=== PATIENT | female | born 1965 | race Caucasian/White ===

== ENCOUNTER 2019-11-14 13:04 | Observation (INO) ==
[2019-11-14] MEDS ORDERED: Aspirin 81 MG TAB.CHEW ONE (13:35)
[2019-11-14] MEDS ORDERED: Aspirin 81 MG TAB.CHEW PO SCH (13:45)
[2019-11-14 14:02] LABS: Basophils % 0.3 %; Eosinophils # 0.2 K/mcL (0.0-0.6); Eosinophils % 2.5 %; Hematocrit 39.9 % (35.3-44.9); Hemoglobin 13.3 g/dL (11.5-15.4); Immature Granulocytes % 0.3 % (0-4); Lymphocytes # 1.5 K/mcL (0.6-4.6); Lymphocytes % 21.2 %; Mean Corpuscular HGB Conc 33.3 g/dL (31.6-35.5); Mean Corpuscular Hemoglobin 28.2 pg (28.0-33.3); Mean Corpuscular Volume 84.5 fL (83.0-100.0); Monocytes # 0.5 K/mcL (0.0-1.3); Monocytes % 6.7 %; Platelet Count 272 K/mcL (140-400); Red Blood Count 4.72 M/mcL (3.82-4.97); Red Cell Distribution Width 13.8 % (11.5-14.5); White Blood Count 7.2 K/mcL (4.3-11.1)
[2019-11-14 14:25] LABS: BUN/Creatinine Ratio 22 (6-26); Blood Urea Nitrogen 16 mg/dL (6-20); Calcium 8.9 mg/dL (8.6-10.3); Carbon Dioxide 26 mEq/L (23-29); Chloride 103 mEq/L (98-107); Glucose 385 mg/dL (70-105); Osmolality,Calculated 303 (280-300); Potassium 4.1 mEq/L (3.5-5.1); Sodium 138 mEq/L (136-145); eGFR For African Americans > 60 (> 60); eGFR For Non-African Americans > 60 (> 60)
[2019-11-14] MEDS ORDERED: Ondansetron 4 MG/2 ML VIAL IVP ONE (15:02)
[2019-11-14] MEDS ORDERED: Naloxone 0.4 MG/ML INJ IVP PRN (16:38)
[2019-11-14] MEDS ORDERED: Ondansetron 4 MG/2 ML VIAL IVP PRN (16:38)
[2019-11-14] MEDS ORDERED: Acetaminophen 325 MG TABLET PO PRN (16:38)
[2019-11-14] MEDS ORDERED: *HR* Dextrose 50 % in Water (Syg) 50 ML SYRINGE IVP PRN (18:55)
[2019-11-14] MEDS ORDERED: D5% in Water 1,000 ML IVC PRN (18:55)
[2019-11-14] MEDS ORDERED: Dextrose Gel 15 GM/37.5 ML TUBE PO PRN ×2 (18:55)
[2019-11-14] MEDS ORDERED: cloNIDine HCl 0.1 MG TABLET PO PRN (18:56)
[2019-11-14] MEDS: Fluticasone Propionate Nasal 50 MCG/SPRAY BOTTLE NS SCH (20:56)
[2019-11-14] MEDS: *HR* Heparin 5,000 UNIT/ML VIAL SQ SCH (20:58)
[2019-11-14] MEDS ORDERED: Lisinopril 20 MG TABLET PO SCH (21:00)
[2019-11-14] MEDS ORDERED: Fenofibrate 54 MG TABLET PO SCH (21:00)
[2019-11-14] MEDS ORDERED: Insulin DETEMIR 100 UNIT/ML X5UNITS SQ SCH (21:00)
[2019-11-14] MEDS ORDERED: Melatonin 3 MG TABLET PO SCH (21:00)
[2019-11-14] MEDS ORDERED: *HR* HYDROcodone/Acet 5/325 mg TABLET PO ONE (23:54)
[2019-11-15 02:11] LABS: Basophils % 0.4 %; Eosinophils # 0.2 K/mcL (0.0-0.6); Eosinophils % 2.4 %; Hematocrit 37.9 % (35.3-44.9); Hemoglobin 12.5 g/dL (11.5-15.4); Immature Granulocytes % 0.5 % (0-4); Lymphocytes # 2.7 K/mcL (0.6-4.6); Lymphocytes % 32.7 %; Mean Platelet Volume 11.2 fL (9.4-12.4); Monocytes # 0.7 K/mcL (0.0-1.3); Monocytes % 8.2 %; Neutrophils # 4.6 K/mcL (1.6-8.9); Platelet Count 274 K/mcL (140-400); Red Blood Count 4.46 M/mcL (3.82-4.97); Red Cell Distribution Width 13.7 % (11.5-14.5); Segmented Neutrophils % 55.8 %; White Blood Count 8.2 K/mcL (4.3-11.1)
[2019-11-15 02:31] LABS: BUN/Creatinine Ratio 28 (6-26); Blood Urea Nitrogen 18 mg/dL (6-20); Calcium 9.1 mg/dL (8.6-10.3); Carbon Dioxide 26 mEq/L (23-29); Chloride 102 mEq/L (98-107); Glucose 163 mg/dL (70-105); Magnesium 1.8 mg/dL (1.6-2.6); Osmolality,Calculated 285 (280-300); Potassium 3.8 mEq/L (3.5-5.1); Sodium 135 mEq/L (136-145); eGFR For African Americans > 60 (> 60); eGFR For Non-African Americans > 60 (> 60)
[2019-11-15] MEDS: *HR* Heparin 5,000 UNIT/ML VIAL SQ SCH (05:02)
[2019-11-15] MEDS: Fluticasone Propionate Nasal 50 MCG/SPRAY BOTTLE NS SCH (08:00)
[2019-11-15] MEDS ORDERED: Insulin LISPRO 300 UNITS/3 ML VIAL SQ SCH (08:00)
[2019-11-15] MEDS ORDERED: Ergocalciferol (VIT D2) 50,000 UNIT (1.25MG) CAP PO SCH (09:00)
[2019-11-15] MEDS ORDERED: Aspirin Enteric Coated 81 MG Tablet PO SCH (09:00)
[2019-11-15 11:15] VITALS: BP 116/75
== END 2019-11-15 12:11 | disposition home or self-care (01) ==
LOC: EMEROOARM 13:04 → 3BNU 13:04 → SUATTDRO 16:36 → 3BNU 17:29
PROVIDERS: ADMIT Pharmacist; ATTEND Internal Medicine

== ENCOUNTER 2020-04-08 02:50 | Observation (INO) ==
[2020-04-08] MEDS ORDERED: Naloxone 0.4 MG/ML INJ IVP PRN (03:15)
[2020-04-08] MEDS ORDERED: *HR* HYDROcodone/Acet 5/325 mg TABLET PO PRN (03:27)
[2020-04-08] MEDS ORDERED: cloNIDine HCL 0.1 MG TABLET PO PRN (03:27)
[2020-04-08] MEDS ORDERED: D5% in Water 1,000 ML IVC PRN (03:31)
[2020-04-08] MEDS ORDERED: *HR* Dextrose 50 % in Water (Vial) 50 ML VIAL IVP PRN (03:31)
[2020-04-08] MEDS ORDERED: Dextrose Gel 15 GM/37.5 ML TUBE PO PRN ×2 (03:31)
[2020-04-08] MEDS: *HR* Heparin 5,000 UNIT/ML VIAL SQ SCH ×2 (06:20→11:38)
[2020-04-08] MEDS: Gabapentin 300 MG CAPSULE PO SCH ×2 (07:53→16:24)
[2020-04-08] MEDS: Insulin LISPRO 300 UNITS/3 ML VIAL SQ SCH ×3 (07:54→16:24)
[2020-04-08] MEDS ORDERED: Fluticasone Propionate Nasal 50 MCG/SPRAY BOTTLE NS SCH (09:00)
[2020-04-08] MEDS ORDERED: Aspirin Enteric Coated 81 MG Tablet PO SCH (09:00)
[2020-04-08] MEDS ORDERED: atenoloL 25 MG TABLET PO SCH (09:00)
[2020-04-08] MEDS ORDERED: Metoprolol XL (24 HR) Succ 25 MG TAB.ER.24H PO SCH (10:15)
[2020-04-08 10:29] LABS: Basophils % 0.4 %; Eosinophils # 0.2 K/mcL (0.0-0.6); Eosinophils % 2.9 %; Hematocrit 38.8 % (35.3-44.9); Hemoglobin 12.7 g/dL (11.5-15.4); Immature Granulocytes % 0.7 % (0-4); Lymphocytes # 2.5 K/mcL (0.6-4.6); Lymphocytes % 34.6 %; Mean Corpuscular HGB Conc 32.7 g/dL (31.6-35.5); Mean Corpuscular Hemoglobin 28.2 pg (28.0-33.3); Mean Platelet Volume 10.7 fL (9.4-12.4); Monocytes # 0.7 K/mcL (0.0-1.3); Monocytes % 9.8 %; Neutrophils # 3.7 K/mcL (1.6-8.9); Platelet Count 262 K/mcL (140-400); Red Blood Count 4.51 M/mcL (3.82-4.97); Red Cell Distribution Width 14.6 % (11.5-14.5); Segmented Neutrophils % 51.6 %; White Blood Count 7.2 K/mcL (4.3-11.1)
[2020-04-08 10:39] LABS: BUN/Creatinine Ratio 25 (6-26); Blood Urea Nitrogen 20 mg/dL (6-20); Calcium 9.4 mg/dL (8.6-10.3); Carbon Dioxide 26 mEq/L (23-29); Chloride 98 mEq/L (98-107); Glucose 275 mg/dL (70-105); Osmolality,Calculated 288 (280-300); Potassium 3.6 mEq/L (3.5-5.1); Sodium 133 mEq/L (136-145); eGFR For African Americans > 60 (> 60); eGFR For Non-African Americans > 60 (> 60)
[2020-04-08 15:36] VITALS: BP 93/60
[2020-04-08] MEDS ORDERED: Warfarin perPT PO PRN (18:00)
[2020-04-08] MEDS ORDERED: *HR* Warfarin 5 MG TABLET PO ONE (18:00)
[2020-04-08] MEDS ORDERED: Fenofibrate 54 MG TABLET PO SCH (21:00)
[2020-04-08] MEDS ORDERED: lisinopriL 20 MG TABLET PO SCH ×2 (21:00)
[2020-04-10] MEDS ORDERED: Ergocalciferol (VIT D2) 50,000 UNIT (1.25MG) CAP PO SCH (09:00)
== END 2020-04-08 18:39 | disposition home or self-care (01) ==
LOC: 3BNU
PROVIDERS: ADMIT Internal Medicine; ATTEND Internal Medicine

== ENCOUNTER 2020-06-13 06:40 | Inpatient (IN) ==
[2020-06-13] MEDS ORDERED: *HR* Midazolam HCl 2 MG/2 ML VIAL ONE (07:10)
[2020-06-13] MEDS ORDERED: *HR* FentaNYL (PF) 100 MCG/2 ML VIAL ONE (07:10)
[2020-06-13] MEDS ORDERED: Lidocaine -MPF 2% 2 ML VIAL ONE (07:10)
[2020-06-13] MEDS ORDERED: *HR* Remifentanil 1 MG VIAL IVP ONE (07:10)
[2020-06-13] MEDS ORDERED: *HR* Succinylcholine 200 MG/10 ML VIAL IVP ONE (07:10)
[2020-06-13] MEDS ORDERED: *HR* Phenylephrine 10 MG/ML VIAL ONE (07:10)
[2020-06-13] MEDS ORDERED: *HR* Propofol 200 MG/20 ML VIAL IVP ONE (07:10)
[2020-06-13] MEDS ORDERED: CeFAZolin Syr 2,000MG/20 ML 2,000 MG/20 ML SYRINGE IVPB ONE (07:18)
[2020-06-13] MEDS ORDERED: Ringers Solution, Lactated 1,000 ML IVC SCH (07:30)
[2020-06-13] MEDS ORDERED: Bacitracin 50,000 UNIT, Polymyxin B Sulfate 500,000 UNIT, Sodium Chloride IRRigation 1,... IR ONE (07:45)
[2020-06-13] MEDS ORDERED: Lidocaine HCL 4 ML Topical Solution (Laryng-O-Jet Kit Sterile Pak) TP ONE (08:04)
[2020-06-13] MEDS ORDERED: *HR* OxyCODONE Immed Rel 5 MG TABLET PO PRN (08:09)
[2020-06-13] MEDS ORDERED: *HR* HYDROmorphone PF 0.5 MG/0.5 ML SYRINGE IVP PRN (08:09)
[2020-06-13] MEDS ORDERED: *HR* FentaNYL (PF) 100 MCG/2 ML VIAL IVP PRN (08:09)
[2020-06-13] MEDS ORDERED: Lacri-Lube 3.5 GM TUBE ONE (08:12)
[2020-06-13] MEDS ORDERED: *HR* Metoprolol 5 MG/5 ML VIAL IVP ONE (08:55)
[2020-06-13] MEDS ORDERED: EPHEDrine 50 MG/ML VIAL ONE (09:58)
[2020-06-13] MEDS ORDERED: *HR* Vasopressin 20 UNIT/ML VIAL ONE (10:02)
[2020-06-13] MEDS ORDERED: *HR* HYDROMORPHONE 2 MG/ML VIAL ONE (12:48)
[2020-06-13] MEDS ORDERED: Ondansetron 4 MG/2 ML VIAL IVP PRN (15:49)
[2020-06-13] MEDS ORDERED: Acetaminophen 325 MG TABLET PO PRN (15:49)
[2020-06-13] MEDS ORDERED: *HR* GlyBURIDE 2.5 MG TABLET PO PRN (15:49)
[2020-06-13] MEDS ORDERED: cloNIDine HCL 0.1 MG TABLET PO PRN (15:49)
[2020-06-13] MEDS ORDERED: Naloxone 0.4 MG/ML INJ IVP PRN (15:49)
[2020-06-13] MEDS ORDERED: *HR* Glimepiride 2 MG TABLET PO PRN (15:49)
[2020-06-13] MEDS: *HR* HYDROcodone/Acet 5/325 mg TABLET PO PRN (16:28)
[2020-06-13] MEDS: Ringers Solution, Lactated 1,000 ML IVC SCH (18:09)
[2020-06-13] MEDS: CeFAZolin 2 GM/120 ML BAG IVPB SCH (18:10)
[2020-06-13] MEDS: *HR* Metformin 500 MG TABLET PO SCH (18:11)
[2020-06-13] MEDS: *HR* OxyCODONE Immed Rel 5 MG TABLET PO PRN (21:15)
[2020-06-13] MEDS: lisinopriL 20 MG TABLET PO SCH (21:15)
[2020-06-14] MEDS: CeFAZolin 2 GM/120 ML BAG IVPB SCH (00:04)
[2020-06-14] MEDS: *HR* OxyCODONE Immed Rel 5 MG TABLET PO PRN ×2 (03:04→11:01)
[2020-06-14] MEDS: Ringers Solution, Lactated 1,000 ML IVC SCH (05:48)
[2020-06-14] MEDS: *HR* HYDROcodone/Acet 5/325 mg TABLET PO PRN (05:49)
[2020-06-14] MEDS: *HR* Metformin 500 MG TABLET PO SCH ×2 (07:51→16:14)
[2020-06-14] MEDS: Fenofibrate 54 MG TABLET PO SCH (07:51)
[2020-06-14] MEDS: Aspirin Enteric Coated 81 MG Tablet PO SCH (07:52)
[2020-06-14] MEDS: Furosemide 40 MG TABLET PO SCH (07:53)
[2020-06-14] MEDS: Metoprolol XL (24 HR) Succ 50 MG TAB.ER.24H PO SCH (07:53)
[2020-06-14] MEDS ORDERED: 0.9 % Sodium Chloride 500 ML IVC ONE ×2 (08:12→16:01)
[2020-06-14] MEDS ORDERED: 0.9 % Sodium Chloride 500 ML ONE ×2 (08:22→16:08)
[2020-06-14 10:48] LABS: BUN/Creatinine Ratio 18 (6-26); Blood Urea Nitrogen 12 mg/dL (6-20); Calcium 8.1 mg/dL (8.6-10.3); Carbon Dioxide 24 mEq/L (23-29); Chloride 101 mEq/L (98-107); Glucose 261 mg/dL (70-105); Osmolality,Calculated 287 (280-300); Potassium 4.4 mEq/L (3.5-5.1); Sodium 134 mEq/L (136-145); eGFR For African Americans > 60 (> 60); eGFR For Non-African Americans > 60 (> 60)
[2020-06-14] MEDS: Gabapentin 300 MG CAPSULE PO SCH ×3 (11:22→21:34)
[2020-06-14] MEDS ORDERED: *HR* Dextrose 50 % in Water (Vial) 50 ML VIAL IVP PRN (13:38)
[2020-06-14] MEDS ORDERED: D5% in Water 1,000 ML IVC PRN (13:38)
[2020-06-14] MEDS ORDERED: Dextrose Gel 15 GM/37.5 ML TUBE PO PRN ×2 (13:38)
[2020-06-14] MEDS: diazePAM 10 MG TABLET PO PRN (16:29)
[2020-06-14] MEDS ORDERED: Perflutren Lipid Microsphere 1.3 ML in 0.9 % Sodium Chloride 8.7 ML IVP PRN (18:09)
[2020-06-14] MEDS: Acetaminophen IV 1,000 MG/100 ML INFUS..BTL IVPB SCH (23:56)
[2020-06-15 03:38] LABS: Hematocrit 31.8 % (35.3-44.9); Mean Corpuscular HGB Conc 31.4 g/dL (31.6-35.5); Mean Corpuscular Hemoglobin 28.9 pg (28.0-33.3); Mean Corpuscular Volume 91.9 fL (83.0-100.0); Mean Platelet Volume 11.3 fL (9.4-12.4); Platelet Count 143 K/mcL (140-400); Red Blood Count 3.46 M/mcL (3.82-4.97); Red Cell Distribution Width 14.6 % (11.5-14.5)
[2020-06-15 04:02] LABS: BUN/Creatinine Ratio 21 (6-26); Blood Urea Nitrogen 14 mg/dL (6-20); Calcium 8.2 mg/dL (8.6-10.3); Carbon Dioxide 26 mEq/L (23-29); Chloride 102 mEq/L (98-107); Glucose 241 mg/dL (70-105); Osmolality,Calculated 288 (280-300); Potassium 4.4 mEq/L (3.5-5.1); Sodium 135 mEq/L (136-145); eGFR For African Americans > 60 (> 60); eGFR For Non-African Americans > 60 (> 60)
[2020-06-15] MEDS: Acetaminophen IV 1,000 MG/100 ML INFUS..BTL IVPB SCH (06:16)
[2020-06-15] MEDS ORDERED: Insulin LISPRO 300 UNITS/3 ML VIAL SQ SCH ×2 (08:15→21:00)
[2020-06-15] MEDS: *HR* Metformin 500 MG TABLET PO SCH (09:44)
[2020-06-15] MEDS: Furosemide 40 MG TABLET PO SCH (09:44)
[2020-06-15] MEDS: Aspirin Enteric Coated 81 MG Tablet PO SCH (09:45)
[2020-06-15] MEDS: Fenofibrate 54 MG TABLET PO SCH (09:45)
[2020-06-15] MEDS: *HR* HYDROcodone/Acet 5/325 mg TABLET PO PRN ×2 (09:45→16:09)
[2020-06-15] MEDS: Gabapentin 300 MG CAPSULE PO SCH ×3 (09:45→20:49)
[2020-06-15] MEDS: Metoprolol XL (24 HR) Succ 50 MG TAB.ER.24H PO SCH (09:46)
[2020-06-15] MEDS: Insulin LISPRO 300 UNITS/3 ML VIAL SQ SCH ×2 (11:56→16:11)
[2020-06-15] MEDS: Acetaminophen 325 MG TABLET PO PRN (11:56)
[2020-06-15] MEDS: carvediloL 6.25 MG TABLET PO SCH (17:37)
[2020-06-15] MEDS: Ringers Solution, Lactated 1,000 ML IVC SCH ×3 (19:11→20:50)
[2020-06-15] MEDS: lisinopriL 20 MG TABLET PO SCH (20:46)
[2020-06-16 02:18] LABS: Hematocrit 30.3 % (35.3-44.9); Hemoglobin 9.6 g/dL (11.5-15.4); Mean Corpuscular HGB Conc 31.7 g/dL (31.6-35.5); Mean Corpuscular Hemoglobin 29.1 pg (28.0-33.3); Mean Corpuscular Volume 91.8 fL (83.0-100.0); Mean Platelet Volume 11.3 fL (9.4-12.4); Platelet Count 175 K/mcL (140-400); Red Cell Distribution Width 14.7 % (11.5-14.5); White Blood Count 9.6 K/mcL (4.3-11.1)
[2020-06-16 02:34] LABS: BUN/Creatinine Ratio 25 (6-26); Blood Urea Nitrogen 16 mg/dL (6-20); Calcium 8.6 mg/dL (8.6-10.3); Carbon Dioxide 27 mEq/L (23-29); Chloride 99 mEq/L (98-107); Glucose 207 mg/dL (70-105); Osmolality,Calculated 285 (280-300); Potassium 4.1 mEq/L (3.5-5.1); Sodium 134 mEq/L (136-145); eGFR For African Americans > 60 (> 60); eGFR For Non-African Americans > 60 (> 60)
[2020-06-16] MEDS: *HR* HYDROcodone/Acet 5/325 mg TABLET PO PRN ×3 (02:36→17:49)
[2020-06-16] MEDS: Ringers Solution, Lactated 1,000 ML IVC SCH ×2 (06:51→21:09)
[2020-06-16] MEDS: Fenofibrate 54 MG TABLET PO SCH (08:57)
[2020-06-16] MEDS: Acetaminophen 325 MG TABLET PO PRN ×2 (08:57→15:10)
[2020-06-16] MEDS: Gabapentin 300 MG CAPSULE PO SCH ×3 (08:57→21:09)
[2020-06-16] MEDS: Aspirin Enteric Coated 81 MG Tablet PO SCH (08:58)
[2020-06-16] MEDS: carvediloL 6.25 MG TABLET PO SCH ×2 (08:59→16:58)
[2020-06-16] MEDS: Insulin LISPRO 300 UNITS/3 ML VIAL SQ SCH ×4 (09:00→21:10)
[2020-06-16] MEDS ORDERED: Warfarin perPT PO PRN (18:00)
[2020-06-16] MEDS ORDERED: *HR* Warfarin 2 MG TABLET PO ONE (18:00)
[2020-06-16] MEDS: lisinopriL 20 MG TABLET PO SCH (21:03)
[2020-06-17] MEDS: *HR* HYDROcodone/Acet 5/325 mg TABLET PO PRN (00:23)
[2020-06-17] MEDS: *HR* OxyCODONE Immed Rel 5 MG TABLET PO PRN ×4 (04:55→22:50)
[2020-06-17 07:13] LABS: INR 1.2; Prothrombin Time 13.8 Seconds (9.4-12.1)
[2020-06-17] MEDS: Gabapentin 300 MG CAPSULE PO SCH ×3 (08:29→19:59)
[2020-06-17] MEDS: Fenofibrate 54 MG TABLET PO SCH (08:29)
[2020-06-17] MEDS: diazePAM 10 MG TABLET PO PRN (08:30)
[2020-06-17] MEDS: Acetaminophen 325 MG TABLET PO PRN ×2 (08:30→17:37)
[2020-06-17] MEDS: Aspirin Enteric Coated 81 MG Tablet PO SCH (08:30)
[2020-06-17] MEDS: carvediloL 6.25 MG TABLET PO SCH ×2 (08:31→16:15)
[2020-06-17] MEDS: Insulin LISPRO 300 UNITS/3 ML VIAL SQ SCH ×4 (08:32→20:08)
[2020-06-17] MEDS ORDERED: *HR* Warfarin 2 MG TABLET PO ONE (18:00)
[2020-06-17] MEDS: lisinopriL 20 MG TABLET PO SCH (20:00)
[2020-06-18 03:44] LABS: INR 1.2; Prothrombin Time 13.6 Seconds (9.4-12.1)
[2020-06-18] MEDS: *HR* OxyCODONE Immed Rel 5 MG TABLET PO PRN ×4 (04:17→22:47)
[2020-06-18] MEDS: Gabapentin 300 MG CAPSULE PO SCH ×3 (08:07→20:29)
[2020-06-18] MEDS: Aspirin Enteric Coated 81 MG Tablet PO SCH (08:08)
[2020-06-18] MEDS: carvediloL 6.25 MG TABLET PO SCH ×2 (08:08→16:02)
[2020-06-18] MEDS: Fenofibrate 54 MG TABLET PO SCH (08:09)
[2020-06-18] MEDS: Insulin LISPRO 300 UNITS/3 ML VIAL SQ SCH ×4 (08:13→22:32)
[2020-06-18] MEDS: diazePAM 10 MG TABLET PO PRN (13:14)
[2020-06-18] MEDS ORDERED: *HR* Warfarin 2 MG TABLET PO ONE (18:00)
[2020-06-18] MEDS ORDERED: diazePAM 10 MG TABLET PO PRN (19:19)
[2020-06-18] MEDS: Acetaminophen 325 MG TABLET PO PRN (20:39)
[2020-06-18] MEDS: Ringers Solution, Lactated 1,000 ML IVC SCH ×2 (21:00→21:01)
[2020-06-18] MEDS: lisinopriL 20 MG TABLET PO SCH (21:02)
[2020-06-19] MEDS: *HR* HYDROcodone/Acet 5/325 mg TABLET PO PRN (01:11)
[2020-06-19] MEDS: Ringers Solution, Lactated 1,000 ML IVC SCH (02:39)
[2020-06-19 03:14] LABS: INR 1.2; Prothrombin Time 13.4 Seconds (9.4-12.1)
[2020-06-19] MEDS: *HR* OxyCODONE Immed Rel 5 MG TABLET PO PRN ×4 (06:49→22:29)
[2020-06-19] MEDS: carvediloL 6.25 MG TABLET PO SCH ×2 (07:45→16:10)
[2020-06-19] MEDS: Aspirin Enteric Coated 81 MG Tablet PO SCH (07:46)
[2020-06-19] MEDS: Gabapentin 300 MG CAPSULE PO SCH ×3 (07:46→20:32)
[2020-06-19] MEDS: Fenofibrate 54 MG TABLET PO SCH (07:46)
[2020-06-19] MEDS: Insulin LISPRO 300 UNITS/3 ML VIAL SQ SCH ×4 (07:47→20:30)
[2020-06-19] MEDS: Ergocalciferol (VIT D2) 50,000 UNIT (1.25MG) CAP PO SCH (10:09)
[2020-06-19] MEDS ORDERED: *HR* Warfarin 2.5 MG TABLET PO ONE (18:00)
[2020-06-19] MEDS: lisinopriL 20 MG TABLET PO SCH (20:29)
[2020-06-20] MEDS: *HR* HYDROcodone/Acet 5/325 mg TABLET PO PRN (01:43)
[2020-06-20] MEDS: *HR* OxyCODONE Immed Rel 5 MG TABLET PO PRN ×4 (02:50→21:12)
[2020-06-20 05:25] LABS: INR 1.3; Prothrombin Time 14.2 Seconds (9.4-12.1)
[2020-06-20] MEDS: Acetaminophen 325 MG TABLET PO PRN (06:30)
[2020-06-20] MEDS: Fenofibrate 54 MG TABLET PO SCH (08:01)
[2020-06-20] MEDS: Aspirin Enteric Coated 81 MG Tablet PO SCH (08:01)
[2020-06-20] MEDS: Gabapentin 300 MG CAPSULE PO SCH ×3 (08:02→21:12)
[2020-06-20] MEDS: carvediloL 6.25 MG TABLET PO SCH ×2 (08:02→16:26)
[2020-06-20] MEDS: Insulin LISPRO 300 UNITS/3 ML VIAL SQ SCH ×4 (08:06→21:00)
[2020-06-20] MEDS ORDERED: *HR* Warfarin 2 MG TABLET PO ONE (18:00)
[2020-06-20] MEDS: lisinopriL 20 MG TABLET PO SCH (21:12)
[2020-06-21] MEDS: *HR* OxyCODONE Immed Rel 5 MG TABLET PO PRN ×3 (04:58→20:28)
[2020-06-21 05:04] LABS: INR 1.3; Prothrombin Time 14.8 Seconds (9.4-12.1)
[2020-06-21] MEDS: carvediloL 6.25 MG TABLET PO SCH ×2 (08:15→16:43)
[2020-06-21] MEDS: Fenofibrate 54 MG TABLET PO SCH (08:15)
[2020-06-21] MEDS: Aspirin Enteric Coated 81 MG Tablet PO SCH (08:15)
[2020-06-21] MEDS: Gabapentin 300 MG CAPSULE PO SCH ×3 (08:15→20:29)
[2020-06-21] MEDS: Insulin LISPRO 300 UNITS/3 ML VIAL SQ SCH ×4 (08:18→20:37)
[2020-06-21 12:56] LABS: Bacteria,Urine Few per hpf (None-Few); Bilirubin,Urine Negative (Negative); Blood,Urine Small (Negative); Clarity,Urine Turbid (Clear); Color,Urine Yellow (Yellow); Glucose,Urine (UA) 300 mg/dL (Normal); Hyaline Casts,Urine Few per lpf (None Seen); Ketones,Urine Negative (Negative); Leukocyte Esterase,Urine Large (Negative); Mucus,Urine Few per lpf (None-Few); Nitrite,Urine Negative (Negative); PH,Urine 7.5 pH Units (5.0-8.0); Protein,Urine 30 mg/dL (Neg-Trace); RBC,Urine 15-30 per hpf (0-3); Specific Gravity,Urine 1.011 (1.010-1.025); Squamous Epithelial Cell,Urine Few per hpf (None-Few); Urobilinogen,Urine Normal (Normal); WBC,Urine TNTC per hpf (0-3)
[2020-06-21] MEDS: cefTRIAXone 1,000 MG in Water for inj. (sterile) 10 ML IVP SCH (16:38)
[2020-06-21] MEDS ORDERED: *HR* Warfarin 4 MG TABLET PO ONE (18:00)
[2020-06-21] MEDS: lisinopriL 20 MG TABLET PO SCH (20:29)
[2020-06-22] MEDS: *HR* OxyCODONE Immed Rel 5 MG TABLET PO PRN ×4 (00:38→17:44)
[2020-06-22 07:43] LABS: INR 1.5; Prothrombin Time 16.6 Seconds (9.4-12.1)
[2020-06-22] MEDS: Insulin LISPRO 300 UNITS/3 ML VIAL SQ SCH ×4 (08:42→22:00)
[2020-06-22] MEDS: Aspirin Enteric Coated 81 MG Tablet PO SCH (08:43)
[2020-06-22] MEDS: carvediloL 6.25 MG TABLET PO SCH ×2 (08:43→16:28)
[2020-06-22] MEDS: Fenofibrate 54 MG TABLET PO SCH (08:43)
[2020-06-22] MEDS: Gabapentin 300 MG CAPSULE PO SCH ×3 (08:43→21:13)
[2020-06-22] MEDS: cefTRIAXone 1,000 MG in Water for inj. (sterile) 10 ML IVP SCH (08:44)
[2020-06-22] MEDS ORDERED: *HR* Warfarin 4 MG TABLET PO ONE (18:00)
[2020-06-22] MEDS: *HR* HYDROcodone/Acet 5/325 mg TABLET PO PRN (21:12)
[2020-06-22] MEDS: lisinopriL 20 MG TABLET PO SCH (21:13)
[2020-06-23 01:30] LABS: INR 1.5; Prothrombin Time 16.7 Seconds (9.4-12.1)
[2020-06-23] MEDS: *HR* OxyCODONE Immed Rel 5 MG TABLET PO PRN ×4 (01:59→16:55)
[2020-06-23] MEDS: *HR* HYDROcodone/Acet 5/325 mg TABLET PO PRN ×2 (04:32→19:10)
[2020-06-23] MEDS: carvediloL 6.25 MG TABLET PO SCH ×2 (08:20→17:48)
[2020-06-23] MEDS: Aspirin Enteric Coated 81 MG Tablet PO SCH (08:21)
[2020-06-23] MEDS: Fenofibrate 54 MG TABLET PO SCH (08:22)
[2020-06-23] MEDS: Gabapentin 300 MG CAPSULE PO SCH ×3 (08:22→20:27)
[2020-06-23] MEDS: Insulin LISPRO 300 UNITS/3 ML VIAL SQ SCH ×4 (08:23→20:05)
[2020-06-23 09:14] LABS: BUN/Creatinine Ratio 19 (6-26); Blood Urea Nitrogen 10 mg/dL (6-20); Calcium 9.3 mg/dL (8.6-10.3); Carbon Dioxide 31 mEq/L (23-29); Chloride 97 mEq/L (98-107); Glucose 205 mg/dL (70-105); Osmolality,Calculated 283 (280-300); Potassium 4.2 mEq/L (3.5-5.1); Sodium 134 mEq/L (136-145); eGFR For African Americans > 60 (> 60); eGFR For Non-African Americans > 60 (> 60)
[2020-06-23] MEDS: cefTRIAXone 1,000 MG in Water for inj. (sterile) 10 ML IVP SCH (10:29)
[2020-06-23] MEDS ORDERED: *HR* Warfarin 3 MG TABLET PO ONE (18:00)
[2020-06-23] MEDS: lisinopriL 20 MG TABLET PO SCH (20:27)
[2020-06-24] MEDS: *HR* OxyCODONE Immed Rel 5 MG TABLET PO PRN ×4 (03:21→18:05)
[2020-06-24 07:37] LABS: INR 1.7; Prothrombin Time 19.5 Seconds (9.4-12.1)
[2020-06-24] MEDS: Gabapentin 300 MG CAPSULE PO SCH ×3 (08:14→20:16)
[2020-06-24] MEDS: carvediloL 6.25 MG TABLET PO SCH ×2 (08:15→18:04)
[2020-06-24] MEDS: Aspirin Enteric Coated 81 MG Tablet PO SCH (08:15)
[2020-06-24] MEDS: Fenofibrate 54 MG TABLET PO SCH (08:15)
[2020-06-24] MEDS: cefTRIAXone 1,000 MG in Water for inj. (sterile) 10 ML IVP SCH (08:16)
[2020-06-24] MEDS: Insulin LISPRO 300 UNITS/3 ML VIAL SQ SCH ×4 (08:26→21:00)
[2020-06-24] MEDS ORDERED: *HR* Warfarin 2 MG TABLET PO ONE (18:00)
[2020-06-24] MEDS: lisinopriL 20 MG TABLET PO SCH (20:17)
[2020-06-24] MEDS ORDERED: 0.9 % Sodium Chloride 500 ML IVC ONE ×3 (20:29→23:30)
[2020-06-25 05:06] LABS: INR 1.9; Prothrombin Time 22.1 Seconds (9.4-12.1)
[2020-06-25] MEDS: Fenofibrate 54 MG TABLET PO SCH (08:00)
[2020-06-25] MEDS: Gabapentin 300 MG CAPSULE PO SCH ×3 (08:00→20:53)
[2020-06-25] MEDS: carvediloL 6.25 MG TABLET PO SCH ×2 (08:01→16:17)
[2020-06-25] MEDS: Aspirin Enteric Coated 81 MG Tablet PO SCH (08:01)
[2020-06-25] MEDS: *HR* HYDROcodone/Acet 5/325 mg TABLET PO PRN (08:01)
[2020-06-25] MEDS: Insulin LISPRO 300 UNITS/3 ML VIAL SQ SCH ×4 (08:02→20:54)
[2020-06-25] MEDS: cefTRIAXone 1,000 MG in Water for inj. (sterile) 10 ML IVP SCH (08:02)
[2020-06-25] MEDS: *HR* OxyCODONE Immed Rel 5 MG TABLET PO PRN ×2 (13:37→21:00)
[2020-06-25] MEDS: lisinopriL 20 MG TABLET PO SCH (20:53)
[2020-06-26 01:27] LABS: INR 1.8; Prothrombin Time 20.7 Seconds (9.4-12.1)
[2020-06-26] MEDS: *HR* OxyCODONE Immed Rel 5 MG TABLET PO PRN ×2 (02:56→07:58)
[2020-06-26 05:50] VITALS: BP 131/82
[2020-06-26] MEDS: Fenofibrate 54 MG TABLET PO SCH (07:52)
[2020-06-26] MEDS: Aspirin Enteric Coated 81 MG Tablet PO SCH (07:53)
[2020-06-26] MEDS: carvediloL 6.25 MG TABLET PO SCH (07:53)
[2020-06-26] MEDS: Gabapentin 300 MG CAPSULE PO SCH (07:53)
[2020-06-26] MEDS: cefTRIAXone 1,000 MG in Water for inj. (sterile) 10 ML IVP SCH (07:54)
[2020-06-26] MEDS: Ergocalciferol (VIT D2) 50,000 UNIT (1.25MG) CAP PO SCH (07:54)
[2020-06-26] MEDS: Insulin LISPRO 300 UNITS/3 ML VIAL SQ SCH (07:55)
== END 2020-06-26 12:40 | DRG 453 ==
LOC: SAMDAY 06:40 → 3NENU 06:40
PROVIDERS: ADMIT Orthopaedic Surgery Orthopaedic Surgery of the Spine; ATTEND Orthopaedic Surgery Orthopaedic Surgery of the Spine

== ENCOUNTER 2020-09-12 13:04 | Inpatient (IN) ==
[2020-09-12] MEDS ORDERED: 0.9 % Sodium Chloride 1,000 ML ONE (18:44)
[2020-09-12] MEDS ORDERED: Naloxone 0.4 MG/ML INJ IVP PRN (19:14)
[2020-09-12 19:57] LABS: Hematocrit 29.3 % (35.3-44.9); Hemoglobin 8.9 g/dL (11.5-15.4); Mean Corpuscular HGB Conc 30.4 g/dL (31.6-35.5); Mean Corpuscular Hemoglobin 25.1 pg (28.0-33.3); Mean Corpuscular Volume 82.5 fL (83.0-100.0); Mean Platelet Volume 11.5 fL (9.4-12.4); Nucleated Red Blood Cells 0.3 /100 WBC (0); Platelet Count 299 K/mcL (140-400); Red Blood Count 3.55 M/mcL (3.82-4.97); Red Cell Distribution Width 17.2 % (11.5-14.5); White Blood Count 21.1 K/mcL (4.3-11.1)
[2020-09-12 19:59] LABS: Activated Partial Thrombo Time 49.2 Seconds (26.0-36.0)
[2020-09-12] MEDS ORDERED: Vancomycin 1,750 MG in 0.9 % Sodium Chloride 250 ML IVPB SCH (20:00)
[2020-09-12] MEDS ORDERED: Vancomycin 1,750 MG/517.5 ML IV.SOLN IVPB ONE (20:00)
[2020-09-12 20:10] LABS: Prothrombin Time 94.7 Seconds (9.4-12.1)
[2020-09-12 20:11] LABS: INR 8.7
[2020-09-12] MEDS ORDERED: 0.9 % Sodium Chloride 1,000 ML IVC SCH (20:15)
[2020-09-12 20:21] LABS: Albumin 2.7 g/dL (3.5-5.7); Albumin/Globulin Ratio 0.7 (1.1-2.2); Bilirubin,Total 0.8 mg/dL (0.3-1.0); Globulin 3.8 g/dL (2.4-3.5); Magnesium 1.6 mg/dL (1.6-2.6); Potassium 5.9 mEq/L (3.5-5.1); Total Protein 6.5 g/dL (6.4-8.9); Troponin I 0.05 ng/mL (< 0.04)
[2020-09-12 20:27] LABS: Lymphocytes # 1.3 K/mcL (0.6-4.6); Monocytes # 1.3 K/mcL (0.0-1.3); Neutrophils # 18.2 K/mcL (1.6-8.9); Platelet Estimate Normal (Normal); Toxic Granulation Present (Not Present)
[2020-09-12] MEDS ORDERED: *HR* Dextrose 50 % in Water (Vial) 50 ML VIAL IVP PRN (20:31)
[2020-09-12] MEDS ORDERED: Dextrose Gel 15 GM/37.5 ML TUBE PO PRN ×2 (20:31)
[2020-09-12] MEDS ORDERED: D5% in Water 1,000 ML IVC PRN (20:31)
[2020-09-12] MEDS: 0.9 % Sodium Chloride 1,000 ML IVC SCH (21:40)
[2020-09-12 21:50] LABS: ABG Base Excess -6 mEq/L (-2 to 3); ABG HCO3 20 mEq/L (21-27); ABG Oxygen Saturation 92 % (95-98); ABG PCO2 41 mmHg (35-45); ABG PO2 72 mmHg (85-104); ABG TCO2 22 mEq/L (20-26)
[2020-09-12] MEDS: Insulin DETEMIR 100 UNIT/ML X5UNITS SQ SCH (22:23)
[2020-09-13] MEDS ORDERED: 0.9 % Sodium Chloride 1,000 ML IV ONE (00:24)
[2020-09-13] MEDS: Piperacillin/Tazobactam 3.375 GM in 0.9 % Sodium Chloride Mini Bag 100 ML IVPB SCH ×2 (00:43→08:25)
[2020-09-13] MEDS: Insulin LISPRO 300 UNITS/3 ML VIAL SQ SCH ×6 (00:44→21:30)
[2020-09-13 01:51] LABS: Adenovirus Not Detected (Not Detect); Coronavirus 229E Not Detected (Not Detect); Coronavirus HKU1 Not Detected (Not Detect); Coronavirus NL63 Not Detected (Not Detect)
[2020-09-13 01:52] LABS: Bordetella Pertussis Not Detected (Not Detect); Chlamydophila pneumoniae Not Detected (Not Detect); Coronavirus OC43 Not Detected (Not Detect); Human Metapneumovirus Not Detected (Not Detect); Human Rhinovirus/Enterovirus Not Detected (Not Detect); Influenza A Subtype 2009 H1 Not Detected (Not Detect); Influenza B Not Detected (Not Detect); Mycoplasma pneumoniae Not Detected (Not Detect); Parainfluenza Virus 1 Not Detected (Not Detect); Parainfluenza Virus 2 Not Detected (Not Detect); Parainfluenza Virus 3 Not Detected (Not Detect); Parainfluenza Virus 4 Not Detected (Not Detect); Respiratory Syncytial Virus Not Detected (Not Detect); SARS-CoV-2 Not Detected (Not Detect)
[2020-09-13 02:03] LABS: Basophils % 0.2 %; Eosinophils % 0.1 %; Hematocrit 29.4 % (35.3-44.9); Hemoglobin 8.7 g/dL (11.5-15.4); Immature Granulocytes % 1.4 % (0-4); Lymphocytes % 5.7 %; Mean Corpuscular HGB Conc 29.6 g/dL (31.6-35.5); Mean Corpuscular Hemoglobin 24.7 pg (28.0-33.3); Mean Corpuscular Volume 83.5 fL (83.0-100.0); Monocytes # 1.1 K/mcL (0.0-1.3); Neutrophils # 15.5 K/mcL (1.6-8.9); Nucleated Red Blood Cells 0.3 /100 WBC (0); Platelet Count 265 K/mcL (140-400); Red Blood Count 3.52 M/mcL (3.82-4.97); Red Cell Distribution Width 17.5 % (11.5-14.5); Segmented Neutrophils % 86.6 %
[2020-09-13 02:10] LABS: INR 3.2; Prothrombin Time 35.6 Seconds (9.4-12.1)
[2020-09-13 02:25] LABS: Albumin 2.6 g/dL (3.5-5.7); Albumin/Globulin Ratio 0.7 (1.1-2.2); Bilirubin,Total 0.9 mg/dL (0.3-1.0); Calcium 7.9 mg/dL (8.6-10.3); Globulin 3.7 g/dL (2.4-3.5); Potassium 5.1 mEq/L (3.5-5.1); Total Protein 6.3 g/dL (6.4-8.9)
[2020-09-13 04:10] LABS: Estimated Average Glucose 206 mg/dl; Hemoglobin A1C 8.8 %
[2020-09-13] MEDS: 0.9 % Sodium Chloride 1,000 ML IVC SCH ×2 (04:18→11:17)
[2020-09-13 05:35] LABS: Bacteria,Urine Few per hpf (None-Few); Bilirubin,Urine Negative (Negative); Blood,Urine Small (Negative); Calcium Oxalate Crystals,Urine Present; Clarity,Urine Turbid (Clear); Color,Urine Light-Yellow (Yellow); Glucose,Urine (UA) Normal (Normal); Ketones,Urine Negative (Negative); Leukocyte Esterase,Urine Moderate (Negative); Mucus,Urine Few per lpf (None-Few); Nitrite,Urine Negative (Negative); Protein,Urine Trace mg/dL (Neg-Trace); RBC,Urine 0-3 per hpf (0-3); Specific Gravity,Urine 1.016 (1.010-1.025); Squamous Epithelial Cell,Urine Few per hpf (None-Few); Urobilinogen,Urine Normal (Normal); WBC,Urine 30-50 per hpf (0-3)
[2020-09-13] MEDS ORDERED: *HR* OxyCODONE Immed Rel 5 MG TABLET PO PRN (08:43)
[2020-09-13] MEDS: *HR* HYDROmorphone (PF) 1 MG/ML SYRINGE IVP PRN ×2 (08:54→21:15)
[2020-09-13] MEDS ORDERED: Furosemide 40 MG/4 ML VIAL IVP ONE (10:56)
[2020-09-13] MEDS: *HR* OxyCODONE Immed Rel 5 MG TABLET PO PRN (11:17)
[2020-09-13] MEDS ORDERED: Cefepime HCl 2,000 MG in Water for inj. (sterile) 20 ML IVP SCH ×2 (12:00→18:00)
[2020-09-13] MEDS: Vancomycin 1,500 MG/265 ML IV.SOLN IVPB SCH (16:59)
[2020-09-13] MEDS: Azithromycin 500 MG in 0.9 % Sodium Chloride 250 ML IVPB SCH (16:59)
[2020-09-13] MEDS: Cefepime HCl 2,000 MG in Water for inj. (sterile) 20 ML IVP SCH (16:59)
[2020-09-13] MEDS: Insulin DETEMIR 100 UNIT/ML X5UNITS SQ SCH (21:16)
[2020-09-14 01:35] LABS: Basophils # 0.1 K/mcL (0.0-0.2); Basophils % 0.4 %; Eosinophils # 0.3 K/mcL (0.0-0.6); Eosinophils % 1.5 %; Hematocrit 29.6 % (35.3-44.9); Hemoglobin 9.1 g/dL (11.5-15.4); Immature Granulocytes % 3.1 % (0-4); Lymphocytes # 1.5 K/mcL (0.6-4.6); Lymphocytes % 8.2 %; Mean Corpuscular HGB Conc 30.7 g/dL (31.6-35.5); Mean Corpuscular Hemoglobin 25.5 pg (28.0-33.3); Mean Corpuscular Volume 82.9 fL (83.0-100.0); Mean Platelet Volume 11.4 fL (9.4-12.4); Monocytes # 1.5 K/mcL (0.0-1.3); Monocytes % 8.1 %; Neutrophils # 14.3 K/mcL (1.6-8.9); Nucleated Red Blood Cells 0.9 /100 WBC (0); Platelet Count 287 K/mcL (140-400); Red Blood Count 3.57 M/mcL (3.82-4.97); Red Cell Distribution Width 17.2 % (11.5-14.5); Segmented Neutrophils % 78.7 %; White Blood Count 18.2 K/mcL (4.3-11.1)
[2020-09-14 01:56] LABS: BUN/Creatinine Ratio 57 (6-26); Blood Urea Nitrogen 37 mg/dL (6-20); Calcium 8.5 mg/dL (8.6-10.3); Carbon Dioxide 21 mEq/L (23-29); Chloride 106 mEq/L (98-107); Glucose 87 mg/dL (70-105); Osmolality,Calculated 288 (280-300); Potassium 4.5 mEq/L (3.5-5.1); Sodium 135 mEq/L (136-145); eGFR For African Americans > 60 (> 60); eGFR For Non-African Americans > 60 (> 60)
[2020-09-14] MEDS: Cefepime HCl 2,000 MG in Water for inj. (sterile) 20 ML IVP SCH ×2 (02:12→12:34)
[2020-09-14] MEDS: Insulin LISPRO 300 UNITS/3 ML VIAL SQ SCH ×3 (02:13→11:25)
[2020-09-14 02:28] LABS: Hepatitis B Surface Antigen Nonreactive (Nonreactive)
[2020-09-14 02:57] LABS: Hepatitis C Virus Antibody Nonreactive (Nonreactive)
[2020-09-14 04:50] LABS: Hepatitis B Core IgM Nonreactive (Nonreactive)
[2020-09-14 06:49] LABS: Hepatitis A Antibody IgM Equivocal (Nonreactive)
[2020-09-14] MEDS: *HR* OxyCODONE Immed Rel 5 MG TABLET PO PRN (08:29)
[2020-09-14] MEDS ORDERED: Furosemide 40 MG/4 ML VIAL IVP ONE (10:04)
[2020-09-14] MEDS: *HR* HYDROmorphone (PF) 1 MG/ML SYRINGE IVP PRN (12:34)
[2020-09-14 12:57] LABS: Prothrombin Time 17.8 Seconds (9.4-12.1)
[2020-09-14 12:58] LABS: INR 1.6
[2020-09-14] MEDS: Vancomycin 1,500 MG/265 ML IV.SOLN IVPB SCH (16:27)
[2020-09-14] MEDS: Azithromycin 500 MG in 0.9 % Sodium Chloride 250 ML IVPB SCH (16:27)
[2020-09-14] MEDS ORDERED: Ondansetron 4 MG/2 ML VIAL ONE (16:38)
[2020-09-14] MEDS ORDERED: Lidocaine -MPF 2% 2 ML VIAL ONE (16:38)
[2020-09-14] MEDS ORDERED: *HR* Propofol 200 MG/20 ML VIAL IVP ONE (16:38)
[2020-09-14] MEDS ORDERED: *HR* Meperidine 25 MG/ML SYRINGE IVP PRN (16:38)
[2020-09-14] MEDS ORDERED: Dexamethasone 4 MG/ML VIAL ONE (16:38)
[2020-09-14] MEDS ORDERED: *HR* FentaNYL (PF) 100 MCG/2 ML VIAL ONE ×2 (16:38→18:38)
[2020-09-14] MEDS ORDERED: Ondansetron 4 MG/2 ML VIAL IVP PRN ×2 (16:38→20:40)
[2020-09-14] MEDS ORDERED: *HR* Succinylcholine 200 MG/10 ML VIAL IVP ONE (16:39)
[2020-09-14] MEDS ORDERED: Vancomycin 1,000 MG VIAL ONE ×2 (17:10→17:48)
[2020-09-14] MEDS ORDERED: Lidocaine HCL 4 ML Topical Solution (Laryng-O-Jet Kit Sterile Pak) TP ONE (17:15)
[2020-09-14] MEDS ORDERED: *HR* PHENYLEPHRINE 1,000 MCG/10 ML SYRINGE IVP ONE (17:15)
[2020-09-14] MEDS ORDERED: *HR* Rocuronium Bromide 50 MG/5 ML VIAL ONE (17:16)
[2020-09-14] MEDS ORDERED: Sugammadex Sodium 200 MG/2 ML VIAL IV ONE (17:20)
[2020-09-14] MEDS ORDERED: Bacitracin 50,000 UNIT, Polymyxin B Sulfate 500,000 UNIT, Sodium Chloride IRRigation 1,... IR ONE (17:30)
[2020-09-14] MEDS: *HR* HYDROmorphone PF 0.5 MG/0.5 ML SYRINGE IVP PRN ×2 (19:00→19:10)
[2020-09-14] MEDS ORDERED: Vancomycin 1,750 MG/517.5 ML IV.SOLN IVPB ONE (20:40)
[2020-09-14] MEDS ORDERED: Acetaminophen 325 MG TABLET PO PRN (20:40)
[2020-09-14] MEDS ORDERED: *HR* OxyCODONE Immed Rel 5 MG TABLET PO PRN ×2 (20:40)
[2020-09-14] MEDS ORDERED: Ringers Solution, Lactated 1,000 ML IVC SCH (20:40)
[2020-09-14] MEDS ORDERED: methocarbamoL 750 MG TABLET PO PRN (20:40)
[2020-09-14] MEDS ORDERED: NON-FORMULARY MEDICATION 1 EACH EACH (Acetaminophen [Tylenol 8 Hour] 650 MG) PO PRN (20:40)
[2020-09-14] MEDS ORDERED: *HR* HYDROcodone/Acet 5/325 mg TABLET PO PRN (20:40)
[2020-09-14] MEDS ORDERED: Naloxone 0.4 MG/ML INJ IVP PRN (20:40)
[2020-09-14] MEDS ORDERED: *HR* Metformin 500 MG TABLET PO SCH (21:00)
[2020-09-14] MEDS: carvediloL 6.25 MG TABLET PO SCH (22:41)
[2020-09-15] MEDS ORDERED: D5% in Water 1,000 ML IVC PRN (07:37)
[2020-09-15] MEDS ORDERED: Dextrose Gel 15 GM/37.5 ML TUBE PO PRN ×2 (07:37)
[2020-09-15] MEDS ORDERED: *HR* Dextrose 50 % in Water (Vial) 50 ML VIAL IVP PRN (07:37)
[2020-09-15] MEDS ORDERED: *HR* Glimepiride 2 MG TABLET PO SCH (08:00)
[2020-09-15] MEDS ORDERED: Azithromycin 500 MG in 0.9 % Sodium Chloride 250 ML IVPB SCH (08:00)
[2020-09-15] MEDS ORDERED: Vancomycin 1,750 MG in 0.9 % Sodium Chloride 250 ML IVPB SCH (08:00)
[2020-09-15] MEDS: Nafcillin 2,000 MG in 0.9 % Sodium Chloride Mini Bag 100 ML IVPB SCH ×2 (08:48→14:10)
[2020-09-15] MEDS ORDERED: Insulin DETEMIR 100 UNIT/ML X5UNITS SQ SCH (09:00)
[2020-09-15] MEDS ORDERED: lisinopriL 20 MG TABLET PO SCH (09:00)
[2020-09-15] MEDS: carvediloL 6.25 MG TABLET PO SCH (09:17)
[2020-09-15] MEDS: Insulin LISPRO 300 UNITS/3 ML VIAL SQ SCH ×2 (09:18→13:59)
[2020-09-15] MEDS ORDERED: Perflutren Lipid Microsphere 1.3 ML in 0.9 % Sodium Chloride 8.7 ML IVP PRN (11:13)
[2020-09-15 11:49] LABS: Hematocrit 28.6 % (35.3-44.9); Hemoglobin 8.8 g/dL (11.5-15.4); Mean Corpuscular HGB Conc 30.8 g/dL (31.6-35.5); Mean Corpuscular Hemoglobin 25.4 pg (28.0-33.3); Mean Corpuscular Volume 82.4 fL (83.0-100.0); Mean Platelet Volume 10.9 fL (9.4-12.4); Platelet Count 292 K/mcL (140-400); Red Blood Count 3.47 M/mcL (3.82-4.97); Red Cell Distribution Width 17.1 % (11.5-14.5); White Blood Count 15.8 K/mcL (4.3-11.1)
[2020-09-15] MEDS ORDERED: levoFLOXacin 750 MG TABLET PO SCH (12:00)
[2020-09-15 12:03] LABS: INR 1.6; Prothrombin Time 18.2 Seconds (9.4-12.1)
[2020-09-15 12:07] LABS: BUN/Creatinine Ratio 62 (6-26); Blood Urea Nitrogen 29 mg/dL (6-20); Calcium 8.6 mg/dL (8.6-10.3); Carbon Dioxide 25 mEq/L (23-29); Chloride 100 mEq/L (98-107); Glucose 208 mg/dL (70-105); Osmolality,Calculated 286 (280-300); Potassium 4.5 mEq/L (3.5-5.1); Sodium 132 mEq/L (136-145); eGFR For African Americans > 60 (> 60); eGFR For Non-African Americans > 60 (> 60)
[2020-09-15] MEDS ORDERED: Lidocaine -MPF 4% 5 ML AMPUL ONE (14:54)
[2020-09-15] MEDS ORDERED: Ondansetron 4 MG/2 ML VIAL ONE (14:58)
[2020-09-15] MEDS ORDERED: *HR* Propofol 200 MG/20 ML VIAL IVP ONE (14:58)
[2020-09-15] MEDS ORDERED: *HR* FentaNYL (PF) 100 MCG/2 ML VIAL ONE ×2 (14:58→17:28)
[2020-09-15] MEDS ORDERED: Lidocaine -MPF 2% 2 ML VIAL ONE (14:58)
[2020-09-15] MEDS ORDERED: *HR* Succinylcholine 200 MG/10 ML VIAL IVP ONE (14:58)
[2020-09-15] MEDS ORDERED: Dexamethasone 4 MG/ML VIAL ONE (14:58)
[2020-09-15] MEDS ORDERED: *HR* Midazolam HCl 2 MG/2 ML VIAL ONE (14:58)
[2020-09-15] MEDS ORDERED: Vancomycin 1,000 MG VIAL ONE (15:42)
[2020-09-15] MEDS ORDERED: *HR* Warfarin 3 MG TABLET PO ONE (18:00)
[2020-09-15] MEDS ORDERED: Warfarin perPT PO PRN (18:00)
[2020-09-15] MEDS ORDERED: Naloxone 0.4 MG/ML INJ IVP PRN (18:45)
[2020-09-15] MEDS ORDERED: Sennosides 8.6 MG TABLET PO PRN (18:45)
[2020-09-15] MEDS ORDERED: Ondansetron 4 MG/2 ML VIAL IVP PRN (18:45)
[2020-09-15] MEDS ORDERED: Acetaminophen 325 MG TABLET PO PRN (18:45)
[2020-09-15] MEDS: *HR* OxyCODONE Immed Rel 5 MG TABLET PO PRN (20:20)
[2020-09-15] MEDS: Ringers Solution, Lactated 1,000 ML IVC SCH (20:21)
[2020-09-15] MEDS ORDERED: Insulin LISPRO 300 UNITS/3 ML VIAL SQ SCH (21:00)
[2020-09-16] MEDS: *HR* OxyCODONE Immed Rel 5 MG TABLET PO PRN ×4 (00:32→19:57)
[2020-09-16] MEDS ORDERED: Vancomycin 1,750 MG/517.5 ML IV.SOLN IVPB ONE (04:30)
[2020-09-16 05:14] LABS: Hematocrit 28.2 % (35.3-44.9); Hemoglobin 8.5 g/dL (11.5-15.4); Mean Corpuscular HGB Conc 30.1 g/dL (31.6-35.5); Mean Corpuscular Hemoglobin 24.8 pg (28.0-33.3); Mean Corpuscular Volume 82.2 fL (83.0-100.0); Mean Platelet Volume 10.9 fL (9.4-12.4); Platelet Count 292 K/mcL (140-400); Red Blood Count 3.43 M/mcL (3.82-4.97); Red Cell Distribution Width 16.8 % (11.5-14.5); White Blood Count 13.6 K/mcL (4.3-11.1)
[2020-09-16 05:30] LABS: BUN/Creatinine Ratio 50 (6-26); Blood Urea Nitrogen 23 mg/dL (6-20); Calcium 8.5 mg/dL (8.6-10.3); Carbon Dioxide 27 mEq/L (23-29); Chloride 97 mEq/L (98-107); Glucose 230 mg/dL (70-105); Osmolality,Calculated 285 (280-300); Potassium 4.4 mEq/L (3.5-5.1); Sodium 132 mEq/L (136-145); eGFR For African Americans > 60 (> 60); eGFR For Non-African Americans > 60 (> 60)
[2020-09-16 05:42] LABS: Prothrombin Time 22.7 Seconds (9.4-12.1)
[2020-09-16] MEDS ORDERED: D5% in Water 1,000 ML IVC PRN (08:55)
[2020-09-16] MEDS ORDERED: Dextrose Gel 15 GM/37.5 ML TUBE PO PRN ×2 (08:55)
[2020-09-16] MEDS ORDERED: *HR* Dextrose 50 % in Water (Vial) 50 ML VIAL IVP PRN (08:55)
[2020-09-16] MEDS: Ringers Solution, Lactated 1,000 ML IVC SCH (08:59)
[2020-09-16] MEDS: Nafcillin 2,000 MG in 0.9 % Sodium Chloride Mini Bag 100 ML IVPB SCH ×4 (09:01→23:36)
[2020-09-16] MEDS: lisinopriL 20 MG TABLET PO SCH (09:28)
[2020-09-16] MEDS: levoFLOXacin 750 MG TABLET PO SCH (09:28)
[2020-09-16] MEDS: Aspirin 81 MG TAB.CHEW PO SCH (09:29)
[2020-09-16] MEDS: *HR* HYDROcodone/Acet 5/325 mg TABLET PO PRN ×2 (14:12→22:53)
[2020-09-16] MEDS: Insulin LISPRO 300 UNITS/3 ML VIAL SQ SCH ×3 (14:25→19:58)
[2020-09-16] MEDS ORDERED: *HR* Warfarin 3 MG TABLET PO ONE (18:00)
[2020-09-16] MEDS ORDERED: Warfarin perPT PO PRN (18:00)
[2020-09-16] MEDS: Insulin DETEMIR 100 UNIT/ML X5UNITS SQ SCH (19:58)
[2020-09-17] MEDS: *HR* OxyCODONE Immed Rel 5 MG TABLET PO PRN ×3 (02:15→20:51)
[2020-09-17] MEDS: *HR* HYDROcodone/Acet 5/325 mg TABLET PO PRN ×3 (05:11→23:15)
[2020-09-17] MEDS: Nafcillin 2,000 MG in 0.9 % Sodium Chloride Mini Bag 100 ML IVPB SCH ×4 (05:11→23:16)
[2020-09-17 06:15] LABS: Hematocrit 31.4 % (35.3-44.9); Hemoglobin 9.5 g/dL (11.5-15.4); Mean Corpuscular HGB Conc 30.3 g/dL (31.6-35.5); Mean Corpuscular Hemoglobin 24.9 pg (28.0-33.3); Mean Corpuscular Volume 82.2 fL (83.0-100.0); Mean Platelet Volume 10.4 fL (9.4-12.4); Platelet Count 319 K/mcL (140-400); Red Blood Count 3.82 M/mcL (3.82-4.97); Red Cell Distribution Width 16.9 % (11.5-14.5); White Blood Count 13.7 K/mcL (4.3-11.1)
[2020-09-17 06:19] LABS: Prothrombin Time 22.5 Seconds (9.4-12.1)
[2020-09-17 06:36] LABS: BUN/Creatinine Ratio 34 (6-26); Blood Urea Nitrogen 14 mg/dL (6-20); Calcium 8.8 mg/dL (8.6-10.3); Carbon Dioxide 29 mEq/L (23-29); Chloride 101 mEq/L (98-107); Glucose 104 mg/dL (70-105); Osmolality,Calculated 281 (280-300); Potassium 3.6 mEq/L (3.5-5.1); Sodium 135 mEq/L (136-145); eGFR For African Americans > 60 (> 60); eGFR For Non-African Americans > 60 (> 60)
[2020-09-17] MEDS: Aspirin 81 MG TAB.CHEW PO SCH (08:46)
[2020-09-17] MEDS: levoFLOXacin 750 MG TABLET PO SCH (08:46)
[2020-09-17] MEDS: lisinopriL 20 MG TABLET PO SCH (08:46)
[2020-09-17] MEDS: Insulin LISPRO 300 UNITS/3 ML VIAL SQ SCH ×4 (08:46→21:11)
[2020-09-17] MEDS ORDERED: *HR* Warfarin 3 MG TABLET PO ONE (18:00)
[2020-09-17] MEDS: Insulin DETEMIR 100 UNIT/ML X5UNITS SQ SCH (21:10)
[2020-09-18] MEDS: *HR* OxyCODONE Immed Rel 5 MG TABLET PO PRN ×3 (01:04→19:44)
[2020-09-18 04:29] LABS: Hematocrit 30.9 % (35.3-44.9); Hemoglobin 9.4 g/dL (11.5-15.4); Mean Corpuscular HGB Conc 30.4 g/dL (31.6-35.5); Mean Corpuscular Hemoglobin 25.1 pg (28.0-33.3); Mean Corpuscular Volume 82.4 fL (83.0-100.0); Mean Platelet Volume 10.9 fL (9.4-12.4); Platelet Count 309 K/mcL (140-400); Red Blood Count 3.75 M/mcL (3.82-4.97); Red Cell Distribution Width 17.1 % (11.5-14.5); White Blood Count 12.3 K/mcL (4.3-11.1)
[2020-09-18 04:32] LABS: Prothrombin Time 22.7 Seconds (9.4-12.1)
[2020-09-18 04:47] LABS: BUN/Creatinine Ratio 24 (6-26); Blood Urea Nitrogen 10 mg/dL (6-20); Calcium 8.1 mg/dL (8.6-10.3); Carbon Dioxide 29 mEq/L (23-29); Chloride 100 mEq/L (98-107); Glucose 151 mg/dL (70-105); Osmolality,Calculated 282 (280-300); Potassium 3.2 mEq/L (3.5-5.1); Sodium 135 mEq/L (136-145); eGFR For African Americans > 60 (> 60); eGFR For Non-African Americans > 60 (> 60)
[2020-09-18] MEDS: Nafcillin 2,000 MG in 0.9 % Sodium Chloride Mini Bag 100 ML IVPB SCH ×5 (06:03→23:49)
[2020-09-18] MEDS ORDERED: Lidocaine Viscous Oral Soln 15 ML SOLUTION MM PRN (07:45)
[2020-09-18] MEDS ORDERED: *HR* Midazolam HCl 2 MG/2 ML VIAL IVP PRN (07:46)
[2020-09-18] MEDS ORDERED: 0.9 % Sodium Chloride 500 ML IVC ONE (07:46)
[2020-09-18] MEDS ORDERED: *HR* Midazolam HCl 5 MG/5 ML VIAL IVP ONE ×2 (08:04→08:05)
[2020-09-18] MEDS: *HR* FentaNYL (PF) 100 MCG/2 ML VIAL IVP PRN ×2 (08:30→08:35)
[2020-09-18] MEDS: Insulin LISPRO 300 UNITS/3 ML VIAL SQ SCH ×4 (11:05→21:20)
[2020-09-18] MEDS: lisinopriL 20 MG TABLET PO SCH (11:27)
[2020-09-18] MEDS: Aspirin 81 MG TAB.CHEW PO SCH (11:27)
[2020-09-18] MEDS ORDERED: tiZANidine 4 MG TABLET PO PRN (13:51)
[2020-09-18] MEDS ORDERED: *HR* Warfarin 3 MG TABLET PO ONE ×2 (18:00)
[2020-09-18] MEDS: Insulin DETEMIR 100 UNIT/ML X5UNITS SQ SCH (21:17)
[2020-09-19] MEDS: *HR* OxyCODONE Immed Rel 5 MG TABLET PO PRN ×2 (02:32→09:52)
[2020-09-19 03:11] LABS: INR 1.9; Prothrombin Time 21.2 Seconds (9.4-12.1)
[2020-09-19 03:19] LABS: Hematocrit 29.9 % (35.3-44.9); Mean Corpuscular HGB Conc 30.1 g/dL (31.6-35.5); Mean Corpuscular Hemoglobin 24.5 pg (28.0-33.3); Mean Corpuscular Volume 81.5 fL (83.0-100.0); Mean Platelet Volume 10.8 fL (9.4-12.4); Platelet Count 315 K/mcL (140-400); Red Blood Count 3.67 M/mcL (3.82-4.97); Red Cell Distribution Width 17.1 % (11.5-14.5); White Blood Count 10.7 K/mcL (4.3-11.1)
[2020-09-19 03:42] LABS: BUN/Creatinine Ratio 25 (6-26); Blood Urea Nitrogen 9 mg/dL (6-20); Carbon Dioxide 27 mEq/L (23-29); Chloride 101 mEq/L (98-107); Glucose 189 mg/dL (70-105); Osmolality,Calculated 282 (280-300); Potassium 3.8 mEq/L (3.5-5.1); Sodium 134 mEq/L (136-145); eGFR For African Americans > 60 (> 60); eGFR For Non-African Americans > 60 (> 60)
[2020-09-19] MEDS: Nafcillin 2,000 MG in 0.9 % Sodium Chloride Mini Bag 100 ML IVPB SCH ×4 (04:08→16:50)
[2020-09-19] MEDS: Aspirin 81 MG TAB.CHEW PO SCH (07:52)
[2020-09-19] MEDS: lisinopriL 20 MG TABLET PO SCH (07:52)
[2020-09-19] MEDS: Insulin LISPRO 300 UNITS/3 ML VIAL SQ SCH ×3 (07:53→16:50)
[2020-09-19 16:20] VITALS: BP 155/89
[2020-09-19] MEDS ORDERED: *HR* Warfarin 5 MG TABLET PO ONE (18:00)
== END 2020-09-19 17:52 | disposition short-term general hospital (02) | DRG 463 ==
LOC: 2ANU → 2NNU 09-13 04:35
PROVIDERS: ADMIT Internal Medicine; ATTEND Internal Medicine